=== PATIENT | male | born 1995 | race Caucasian/White ===

== ENCOUNTER 2022-08-06 19:48 | Emergency (ER) | payer OTHER, SELFPAY ==
--- NOTE | 2022-08-06 20:03 | ECG_ITS ---
Measurements Intervals [place] Rate: 104 P: 61 NM: 138 QRS: 50 QRSD: 98 T: -2 QT: 329 QTc: 434 Interpretive Statements SINUS TACHYCARDIA WITH FREQUENT SUPRAVENTRICULAR PREMATURE COMPLEXES MODERATE T-WAVE ABNORMALITY NO PREVIOUS ECG AVAILABLE FOR COMPARISON Electronically Signed On 08-07-2022 8:40:43 ABSTRACTER by Genevieve Moon M.D.
[2022-08-06 20:06] VITALS: BP 138/88; PULSE 115; RESP 26; TEMP 36.8; O2SAT 100
[2022-08-06 20:30] LABS: Basophils Absolute Auto 0.1 K/mm3 (0.0-0.1); Basophils Percent Auto 0.7 % (0.2-1.2); Eosinophils Absolute Auto 0.2 K/mm3 (0-0.3); Eosinophils Percent Auto 1.4 % (0-4.4); Hematocrit 51.3 % (42.0-52.0); Hemoglobin 17.7 g/dL (14.0-18.0); Immature Granulocyte Absolute 0.04 K/mm3 (0.00-0.031); Immature Granulocyte Percent A 0.4 % (0-0.5); Lymphocytes Absolute Auto 2.59 K/mm3 (0.9-3.2); Mean Corpuscular HGB Conc 34.5 g/dl (32-36); Mean Corpuscular Hemoglobin 30.6 pg (26-34); Mean Corpuscular Volume 88.6 fl (80-100); Mean Platelet Volume 9.5 fl (7.4-10.4); Monocytes Absolute Auto 0.8 K/mm3 (0.1-0.6); Monocytes Percent Auto 7.1 % (2.6-8.5); Neutrophils Absolute Auto 7.2 K/mm3 (1.3-6.7); Neutrophils Percent Auto 66.4 % (45.5-73.1); Platelet Count Result 304 k/mm3 (150-375); Red Blood Count 5.79 M/mm3 (4.6-6.20); Red Cell Distribution Width 12.7 % (11.5-14.5); White Blood Count 10.8 K/mm3 (4.5-10.0)
[2022-08-06 20:40] LABS: Alanine Aminotransferase 54 U/L (6-50); Albumin Level 5.1 g/dL (3.5-5.1); Alkaline Phosphatase 79 U/L (38-126); Anion Gap 14 mmol/L (8-16); Aspartate Amino Transferase 36 U/L (17-59); Bilirubin,Total 2.1 mg/dL (0.2-1.3); Blood Urea Nitrogen 13 mg/dL (9-20); Calcium 9.7 mg/dL (8.4-10.2); Carbon Dioxide 20 mmol/L (22-30); Chloride 109 mmol/L (98-107); Estimated CRCL calculation 86 ml/min; Estimated Glomerular Filt Rate 60; Glucose 110 mg/dL (65-110); Potassium 3.3 mmol/L (3.4-5.0); Sodium 143 mmol/L (137-145)
[2022-08-06 20:46] LABS: INR 1.1; Prothrombin Time 13.6 Seconds (11.1-14.7)
[2022-08-06 20:47] LABS: Partial Thromboplastin Time 26.6 SECONDS (22.3-36.8)
[2022-08-06 21:20] LABS: Troponin I < 0.012 ng/mL (0.000-0.034)
--- NOTE | 2022-08-06 23:51 | ED.ANXIETY ---
HPI - Anxiety General Chief Complaint: Anxiety <Maryann Guillen PA-C - Last Filed: 08/07/22 02:36> Stated Complaint: Anxiety attack, high HR <FLOWER Olmedo Last Filed: 08/07/22 02:36> Time Seen by Provider: 08/06/22 23:23 <FLOWER Olmedo Last Filed: 08/07/22 02:36> Source: patient <FLOWER Olmedo Last Filed: 08/07/22 02:36> Mode of arrival: ambulatory <FLOWER Olmedo Last Filed: 08/07/22 02:36> Limitations: no limitations <FLOWER Olmedo Last Filed: 08/07/22 02:36> History of Present Illness HPI narrative: This is a 27 year old male that presents to the ER for anxiety. Reports he was recently started on medications for his anxiety. He has been having some intermittent left sided chest pain that is brief in nature and feels burning. Reports the pain is relieved with certain movements. Reports he noted his heart rate was elevated today which prompted him to be seen. Did take his Lorazepam upon arrival with some improvement. Denies fever, cough, shortness of breath or lower extremity edema. <FLOWER Olmedo Last Filed: 08/07/22 02:36> Review of Systems Review of Systems: CONSTITUTIONAL: Denies fever EYES: Denies visual changes ENT: Denies congestion CARDIOVASCULAR: Reports chest pain. Denies edema. RESPIRATORY: Denies cough or dyspnea. GASTROINTESTINAL: Denies vomiting SKIN: Denies rash MUSCULOSKELETAL: Reports joint pain, and myalgia. NEUROLOGIC: Denies numbness, or weakness. PSYCHIATRIC: Reports anxiety <FLOWER Olmedo Last Filed: 08/07/22 02:36> All systems reviewed & are unremarkable except as noted in HPI and below <FLOWER Olmedo Last Filed: 08/07/22 02:36> PMFSH Past Medical History Medical History: Medical History (Updated 08/08/22 @ 00:00 by Background Daemon) History of anxiety <FLOWER Olmedo Last Filed: 08/07/22 02:36> Surgical History Surgical History: Surgical History (Updated 08/06/22 @ 23:55 by Maryann Guillen PA-C) History of tonsillectomy <Maryann Guillen PA-C - Last Filed: 08/07/22 02:36> Social History Social History: Social History (Updated 08/06/22 @ 23:55 by Maryann Guillen PA-C) Smoking status: Never smoker Substance use: never <Maryann Guillen PA-C - Last Filed: 08/07/22 02:36> Exam Narrative: GENERAL: Well-appearing, well-nourished, anxious HEAD: Normocephalic, atraumatic. EYES: EOMI. ENT: Nares clear, no rhinorrhea or epistaxis. Mucous membranes moist. Oropharynx without tonsillar hypertrophy exudate or other lesions. CHEST: Clear to auscultation. No respiratory distress. No wheezes rales or rhonchi HEART: Regular rate and rhythm. No murmur heard. Normal peripheral pulses. EXTREMITIES: Normal range of motion. No edema. SKIN: Warm, dry, no rash. NEURO: No focal deficits. Alert and oriented x3. PSYCH: Anxious <Maryann Guillen PA-C - Last Filed: 08/07/22 02:36> Course Course Emergency Course: Patient was updated on work-up. He had refused IV or any further evaluation and management. Reports he would like to go home and rest <Maryann Guillen PA-C - Last Filed: 08/07/22 02:36> CONTINUOUS WAVE OPERATOR/PA Physician Supervision For this encounter, I have reviewed the mid-level provider documentation, treatment plan and medical decision making. I have had [id number] time with the patient. physical exam revealed an anxious appearing 27-year-old male. He was accompanied by his girlfriend. His physical exam is unremarkable except for tachycardia. Patient has a history of anxiety and panic attacks but could be the cause of his tachycardia. However A workup was performed evaluate for other causes. His troponins were negative. His D-dimer was negative. We wanted to give the patient IV fluids but he refused and would prefer to just drink water on his own. The patient then stated that he would like to leave. Patient was discharged with appro
[2022-08-07] VITALS (15 sets, daily range): BP systolic 137–147; BP diastolic 88–103; PULSE 107–132; RESP 13–20; O2SAT 99–100
[2022-08-07 00:48] LABS: D Dimer 0.27 ug/mL (<0.48)
[2022-08-07 02:09] LABS: Troponin I < 0.012 ng/mL (0.000-0.034)
[2022-08-07] MEDS: POTASSIUM CHLORIDE 20 MEQ PACKET (FOR LIQUID) 40 MEQ PO (02:55)
== END 2022-08-07 02:00 | disposition home or self-care (01) ==
PROVIDERS: Physician Assistant; Emergency Provider Emergency Medicine
DX: F41.9 Anxiety disorder, unspecified (principal); R07.9 Chest pain, unspecified; R00.0 Tachycardia, unspecified; E80.6 Other disorders of bilirubin metabolism; E87.6 Hypokalemia
CPT/HCPCS: 36415; 80053; 84484; 85025; 85380; 85610; 85730; 93005; 99284; A9270